=== PATIENT | male | born 1970 | race Caucasian/White ===

== ENCOUNTER 2023-02-06 09:57 | Day surgery (SDC) | payer OTHER, SELFPAY ==
[2023-02-06] VITALS (8 sets, daily range): BP systolic 123–136; BP diastolic 71–87; PULSE 52–69; RESP 9–18; TEMP 35.9–36.2; O2SAT 92–97; BMI 29.1
[2023-02-06] MEDS: LACTATED RINGER'S SOLUTION 1,000 ML 50 ML IV (10:46)
[2023-02-06] MEDS: CEFAZOLIN SODIUM/DEXTROSE,ISO 2 GM/50 ML PIGGYBACK IV (11:09)
[2023-02-06] MEDS: BUPIVACAINE HCL 0.5% PF 50 MG/10 ML VIAL 20 ML INJ (12:04)
--- NOTE | 2023-02-06 16:19 | PM.ONB ---
Brief Operative Note Date of procedure: 02/06/23 Pre-op diagnosis: umbilical hernia, left inguinal hernia Post-op diagnosis: same Procedure: robotic repair of umbilical and left inguinal hernias with mesh Surgeon: Yasir Garsia Estimated blood loss (mL): 10 Pathology: none sent
--- NOTE | 2023-02-12 09:49 | PM.GSPRC ---
Date of procedure: 02/06/23 Indications for Procedure: This patient is a 53-year-old male who was recently evaluated for a symptomatic umbilical as well as left inguinal hernias. Based on these findings robotic-assisted repair of the hernias with mesh was recommended. The risks benefits options and potential complications of the procedure were discussed in detail with him and he agreed to proceed and consent was signed. Pre-op diagnosis: Umbilical hernia, left inguinal hernia Post-op diagnosis: same Procedure: Robotic-assisted repair of umbilical hernia with mesh and left inguinal hernia repair with mesh Anesthesia: GETA Surgeon: Yasir Garsia Procedure Summary: The patient was brought to the operating room and placed in the supine position. Gen. anesthesia was induced the patient was intubated. Abdomen was prepped and draped in usual sterile fashion. Patient received IV antibiotics preoperatively. A site in the left upper quadrant was infiltrated with local anesthesia. A small incision was made. An 8 mm robotic port was placed through this incision and advanced into the peritoneal cavity under laparoscopic guidance. The abdomen was then insufflated to 15 mmHg of carbon dioxide. The camera was introduced via laparoscopy performed. Safe port site entry was confirmed. Additional 8 mm ports were then placed in the epigastric region as well as the right subcostal region following local anesthesia under direct visualization. At this point the da Shawn XI was brought to the field. All ports were docked and instruments introduced in standard fashion. At this point I left the operating table and a [employer] surgeon console. On initial inspection there was a segment of omentum extending into the hernia defect at the umbilicus. This was easily reduced. There was a moderate amount of surrounding preperitoneal adipose tissue. This was cleared circumferentially with electrocautery as well as sharp and blunt dissection to allow flat mesh placement. At this point a 9 cm round Symbotex composite mesh with a central suture was brought into the peritoneal cavity. Through a small incision the suture grasper was advanced into the peritoneal cavity in the suture of the mesh was grasped and the mesh pulled to the anterior abdominal wall. Her to this the small fascial defect was closed with a running suture of 0 V LOC. With the mesh in place and this was sutured circumferentially to the anterior abdominal wall with 3-0 V loc sutures. The central suture the mesh was then excised. Secure mesh placement and excellent coverage of the hernia defect was noted. At this point the da Shawn xi was undocked. The patient was then placed in Trendelenburg position. The da Shawn xi was then dissected and once again instruments and camera introduced in standard fashion for planned repair of the left inguinal hernia. Peritoneal incision was then made from the midline to the left lateral pelvis with cautery and sharp dissection. The peritoneal flap was then created with blunt and sharp dissection as well as cautery. Stephen's ligament was identified. There was a notable indirect hernia sac as well as a fairly large lipoma of the cord. These were gradually and subsequently totally reduced with traction as well as cautery and blunt and sharp dissection. Next a 10 cm x 15 cm Pro quartz miner blasting mesh was brought into the field. This was placed overlying the hernia defect with excellent coverage of the hernia defect as well as potential sites of defect. Excellent mesh coverage of the hernia and hemostasis was noted. The peritoneum was then reapproximated with a running suture of 3-0V loc. No other abnormalities were identified. At this point the da Shawn X I was undocked instruments and ports removed and the abdomen desufflated. Incisions were reapproximated with running subcutaneous sutures of 4-0 Vicryl. Sponge needle and instrument counts were correct at the end of the procedure. The patient tolerated the procedure well and was transferred to the recovery area in stable condition. Estimated blood loss (mL): 10 Specimens: none Complications: No
== END 2023-02-06 16:35 | disposition home or self-care (01) ==
PROVIDERS: PCP Nurse Practitioner Primary Care; Visit Provider Surgery
PROC: (CPT 49613; principal; 2023-02-06 11:00)
DX: K42.9 Umbilical hernia without obstruction or gangrene (principal); K40.91 Unilateral inguinal hernia, without obstruction or gangrene, recurrent; J45.40 Moderate persistent asthma, uncomplicated; Z79.899 Other long term (current) drug therapy; Z80.0 Family history of malignant neoplasm of digestive organs
CPT/HCPCS: 49613; 49650; 64488; C1781; J1170; J2704

== ENCOUNTER 2024-10-31 08:58 | Outpatient (RCR) | payer OTHER, SELFPAY | END 2024-11-15 07:33 | disposition home or self-care (01) | LOC: PT 08:58 | PROVIDERS: PCP Nurse Practitioner; Visit Provider Emergency Medicine Emergency Medical Services | DX: S56.911D Strain of unspecified muscles, fascia and tendons at forearm level, right arm, subsequent encounter (principal); M25.521 Pain in right elbow; R53.1 Weakness | CPT/HCPCS: 97110; 97161 ==